=== PATIENT | female | born 1950 | race Caucasian/White ===

== ENCOUNTER → 2018-02-03 | Outpatient (CLI) | payer MEDICARE, OTHER ==
[~2018-02-03] MED LIST: ASPI81CH PO; CODACE30 PO; METO2.5 PO; Multi-Day Vita1 EACH PO; Vitamin D2000 UNIT PO; XARELTO20 MG PO
[2018-02-03 14:49] LABS: Source, Urine Clean Catch
[2018-02-03 15:27] LABS: Red Blood Cells, Urine TNTC /hpf (0-2); Squamous Epithelial Cells Not Seen /hpf (Few); White Blood Cells, Urine Not Seen /hpf (0-5)
[2018-02-03 15:29] LABS: Amorphous Mod (0-Heavy)
== END | disposition home or self-care (01) ==
LOC: LAB SHORT 14:46 → LAB EV 14:46
PROVIDERS: Physician Assistant Medical
DX: R31.9 Hematuria, unspecified (principal)
CPT/HCPCS: 81015

== ENCOUNTER 2019-09-17 00:20 | Emergency (ER) | payer MEDICARE, OTHER ==
[~2019-09-17] VITALS: Ht 162.6 cm; Wt 63.5 kg
[2019-09-17] MEDS ORDERED: AMIODARONE HCL100 MG PO (01:02)
[2019-09-17 01:03] LABS: BASOPHILS ABSOLUTE AUTO 0.04 K/mm3 (0.00-0.23); BASOPHILS PERCENT AUTO 1 % (0-2); EOSINOPHILS ABSOLUTE AUTO 0.11 K/mm3 (0.00-0.68); EOSINOPHILS PERCENT AUTO 2 % (0-6); Hematocrit 37.2 % (33.0-51.0); Hemoglobin 12.5 g/dL (11.5-16.0); IMMATURE GRAN ABSOLUTE AUTO 0.01 K/mm3 (0.00-0.10); IMMATURE GRAN PERCENT AUTO 0 % (0-1); LYMPHOCYTES ABSOLUTE AUTO 1.42 K/mm3 (0.84-5.20); LYMPHOCYTES PERCENT AUTO 31 % (21-46); MONOCYTES PERCENT AUTO 7 % (4-13); Mean Corpuscular HGB 33.2 pg (26.0-34.0); Mean Corpuscular HGB Conc 33.6 g/dL (31.5-36.5); Mean Corpuscular Volume 99 fL (80-100); NEUTROPHILS ABSOLUTE AUTO 2.73 K/mm3 (1.96-9.15); NEUTROPHILS PERCENT AUTO 59 % (41-73); Platelet Count 169 K/mm3 (150-400); RDW Coefficient Variation 12.1 % (11.7-14.2); RDW Standard Deviation 44.5 fL (35.1-46.3); Red Blood Cell Count 3.76 M/mm3 (3.80-5.20); White Blood Cell Count 4.61 K/mm3 (4.00-11.30)
[2019-09-17 01:21] LABS: Alanine Aminotransfer (ALT/SGP 31 U/L (12-78); Albumin/Globulin Ratio 1.3 (0.8-1.8); Alk Phos 127 U/L (50-136); Anion Gap 8 mmol/L (6-16); Aspartate Aminotrans (AST/SGOT 25 U/L (12-37); Bilirubin, Total 0.5 mg/dL (0.1-1.0); Blood Urea Nitrogen 19 mg/dL (8-24); Bun/Creatinine Ratio 17.9 (12.0-20.0); CO2, Blood 26 mmol/L (21-32); Calcium, Blood 8.9 mg/dL (8.5-10.1); Chloride, Blood 109 mmol/L (98-108); Creatinine, Blood 1.06 mg/dL (0.40-1.00); Glomerular Filtration Rate 55 (60-); Glucose, Blood 100 mg/dL (70-99); Potassium, Blood 3.6 mmol/L (3.5-5.5); Sodium, Blood 143 mmol/L (136-145); Troponin I <0.015 ng/mL (0.000-0.040)
== END 2019-09-17 02:02 | disposition home or self-care (01) ==
LOC: ER 00:20
PROVIDERS: Emergency Medicine
DX: I10 Essential (primary) hypertension (principal); M79.602 Pain in left arm; R20.2 Paresthesia of skin; Z88.1 Allergy status to other antibiotic agents; Z88.8 Allergy status to other drugs, medicaments and biological substances; Z91.048 Other nonmedicinal substance allergy status; Z79.899 Other long term (current) drug therapy; Z79.01 Long term (current) use of anticoagulants
CPT/HCPCS: 36415; 71046; 80053; 84484; 85025; 93005; 93010; 99285-25

== ENCOUNTER → 2021-11-13 | Outpatient (CLI) | payer MEDICARE, OTHER ==
[~2021-11-13] MED LIST changes: +ALEN70; +AMIODARONE HCL100 MG PO; +CALCIUM 600 +1 EA11; +CENTRUM SILVER1 EAC2; +ERGO400; +LASIX40 MG; +POTA10T
== END | disposition home or self-care (01) ==
LOC: LAB SHORT 11:15 → PLD 11:15
DX: L30.8 Other specified dermatitis (principal)
CPT/HCPCS: 88305; 88312

== ENCOUNTER → 2023-12-10 | Outpatient (CLI) | payer OTHER | LOC: LAB SHORT 11:54 → PLD 11:54 | DX: D48.5 Neoplasm of uncertain behavior of skin (principal) | CPT/HCPCS: 88305 ==

== ENCOUNTER 2024-09-13 08:15 | Emergency (ER) | payer OTHER ==
[~2024-09-13] VITALS: Ht 162.6 cm; Wt 67.1 kg
[~2024-09-13 08:15] MED LIST changes: -ERGO400; +ERGO400 PO
[2024-09-13 09:47] LABS: BASOPHILS ABSOLUTE AUTO 0.06 K/mm3 (0.00-0.23); BASOPHILS PERCENT AUTO 1 % (0-2); EOSINOPHILS ABSOLUTE AUTO 0.09 K/mm3 (0.00-0.68); EOSINOPHILS PERCENT AUTO 2 % (0-6); Hematocrit 32.9 % (33.0-51.0); Hemoglobin 10.8 g/dL (11.5-16.0); IMMATURE GRAN ABSOLUTE AUTO 0.01 K/mm3 (0.00-0.10); IMMATURE GRAN PERCENT AUTO 0 % (0-1); LYMPHOCYTES PERCENT AUTO 23 % (21-46); MONOCYTES ABSOLUTE AUTO 0.29 K/mm3 (0.16-1.47); MONOCYTES PERCENT AUTO 7 % (4-13); Mean Corpuscular HGB 33.2 pg (26.0-34.0); Mean Corpuscular HGB Conc 32.8 g/dL (31.5-36.5); Mean Corpuscular Volume 101 fL (80-100); Mean Platelet Volume 9.6 fL (9.1-12.4); NEUTROPHILS ABSOLUTE AUTO 2.98 K/mm3 (1.96-9.15); NEUTROPHILS PERCENT AUTO 67 % (41-73); Platelet Count 200 K/mm3 (150-400); Red Blood Cell Count 3.25 M/mm3 (3.80-5.20); White Blood Cell Count 4.43 K/mm3 (4.00-11.30)
[2024-09-13 10:23] LABS: Albumin, Blood 3.8 g/dL (3.4-5.0); Albumin/Globulin Ratio 1.5 (0.8-1.8); Bilirubin, Total 0.8 mg/dL (0.1-1.0); Bun/Creatinine Ratio 14.9 (12.0-20.0); Calcium, Blood 8.9 mg/dL (8.5-10.1); Creatinine, Blood 1.68 mg/dL (0.40-1.00); Globulin, Blood 2.5 g/dL (2.2-4.0); Potassium, Blood 3.7 mmol/L (3.5-5.5); Total Protein, Blood 6.3 g/dL (6.4-8.2)
[2024-09-13] MEDS ORDERED: LOSARTAN POTASS25 M2 PO (11:21)
[2024-09-13] MEDS ORDERED: EUTHYROX25 MC1 PO (11:22)
[2024-09-13] MEDS ORDERED: METOPROLOL SUCC25 MG PO (11:22)
[2024-09-13] MEDS ORDERED: Potassium Chlo20 ME1 PO (11:24)
[2024-09-13] MEDS ORDERED: FUROSEMIDE40 MG PO (11:24)
[2024-09-13] MEDS ORDERED: XARELTO15 M1 PO (11:24)
[2024-09-13] MEDS ORDERED: IBUP600 PO (13:57)
[2024-09-13 14:00] VITALS: BP 126/66
== END 2024-09-13 14:15 | disposition home or self-care (01) ==
LOC: ER 08:15
PROVIDERS: Physician Assistant
DX: M54.10 Radiculopathy, site unspecified (principal); J90 Pleural effusion, not elsewhere classified; I48.91 Unspecified atrial fibrillation; I10 Essential (primary) hypertension; Z95.0 Presence of cardiac pacemaker; Z88.0 Allergy status to penicillin; Z88.1 Allergy status to other antibiotic agents; Z91.048 Other nonmedicinal substance allergy status; Z79.01 Long term (current) use of anticoagulants; Z79.899 Other long term (current) drug therapy
CPT/HCPCS: 71046; 71260; 80053; 84484; 85025; 93005; 93010; 99284-25; Q9967

== ENCOUNTER 2024-09-16 09:45 | Emergency (ER) | payer OTHER ==
[~2024-09-16] VITALS: Ht 162.6 cm; Wt 67.1 kg
[~2024-09-16 09:45] MED LIST changes: +EUTHYROX25 MC1 PO; +FUROSEMIDE40 MG PO; +IBUP600 PO; +LOSARTAN POTASS25 M2 PO; +METOPROLOL SUCC25 MG PO; +Potassium Chlo20 ME1 PO; +XARELTO15 M1 PO
[2024-09-16 10:15] LABS: BASOPHILS ABSOLUTE AUTO 0.06 K/mm3 (0.00-0.23); BASOPHILS PERCENT AUTO 1 % (0-2); EOSINOPHILS ABSOLUTE AUTO 0.17 K/mm3 (0.00-0.68); EOSINOPHILS PERCENT AUTO 3 % (0-6); Hematocrit 31.7 % (33.0-51.0); Hemoglobin 10.5 g/dL (11.5-16.0); IMMATURE GRAN ABSOLUTE AUTO 0.02 K/mm3 (0.00-0.10); IMMATURE GRAN PERCENT AUTO 0 % (0-1); LYMPHOCYTES ABSOLUTE AUTO 1.01 K/mm3 (0.84-5.20); LYMPHOCYTES PERCENT AUTO 18 % (21-46); MONOCYTES ABSOLUTE AUTO 0.36 K/mm3 (0.16-1.47); MONOCYTES PERCENT AUTO 6 % (4-13); Mean Corpuscular HGB 33.8 pg (26.0-34.0); Mean Corpuscular HGB Conc 33.1 g/dL (31.5-36.5); Mean Corpuscular Volume 102 fL (80-100); Mean Platelet Volume 9.7 fL (9.1-12.4); NEUTROPHILS ABSOLUTE AUTO 4.12 K/mm3 (1.96-9.15); NEUTROPHILS PERCENT AUTO 72 % (41-73); Platelet Count 192 K/mm3 (150-400); RDW Coefficient Variation 13.2 % (11.7-14.2); RDW Standard Deviation 49.3 fL (35.1-46.3); Red Blood Cell Count 3.11 M/mm3 (3.80-5.20); White Blood Cell Count 5.74 K/mm3 (4.00-11.30)
[2024-09-16 10:34] LABS: Albumin, Blood 3.7 g/dL (3.4-5.0); Albumin/Globulin Ratio 1.4 (0.8-1.8); Bilirubin, Total 0.9 mg/dL (0.1-1.0); Bun/Creatinine Ratio 15.8 (12.0-20.0); Calcium, Blood 9.2 mg/dL (8.5-10.1); Creatinine, Blood 1.52 mg/dL (0.40-1.00); Globulin, Blood 2.6 g/dL (2.2-4.0); Potassium, Blood 3.6 mmol/L (3.5-5.5); Total Protein, Blood 6.3 g/dL (6.4-8.2)
[2024-09-16 12:22] LABS: International Normalized Ratio 1.07; Prothrombin Time Results 11.4 Sec (9.7-11.5)
[2024-09-16 13:44] VITALS: BP 139/85
== END 2024-09-16 13:45 | disposition home or self-care (01) ==
LOC: ER 09:45
PROVIDERS: Physician Assistant; Student in an Organized Health Care Education/Training Program
DX: J90 Pleural effusion, not elsewhere classified (principal); I48.91 Unspecified atrial fibrillation; I10 Essential (primary) hypertension; Z79.899 Other long term (current) drug therapy; Z88.0 Allergy status to penicillin; Z88.1 Allergy status to other antibiotic agents; Z91.048 Other nonmedicinal substance allergy status
CPT/HCPCS: 36415; 71046; 80053; 83880; 85025; 85610; 85730; 93005; 93010; 99284-25

== ENCOUNTER 2024-09-19 10:35 | Day surgery (SDC) | payer OTHER | END 2024-09-20 00:20 | disposition home or self-care (01) | LOC: US 10:35 | DX: J90 Pleural effusion, not elsewhere classified (principal); I11.9 Hypertensive heart disease without heart failure; I48.91 Unspecified atrial fibrillation; R06.00 Dyspnea, unspecified; Z95.0 Presence of cardiac pacemaker; Z79.01 Long term (current) use of anticoagulants; Z79.83 Long term (current) use of bisphosphonates; Z79.899 Other long term (current) drug therapy; Z91.048 Other nonmedicinal substance allergy status; Z88.0 Allergy status to penicillin; Z88.8 Allergy status to other drugs, medicaments and biological substances | CPT/HCPCS: 32555; 71045; 82945; 84157; 87070; 87205; 88108; 88305 ==

== ENCOUNTER → 2024-09-19 | Outpatient (CLI) | payer OTHER ==
[2024-09-19 12:55] LABS: Glucose, Body Fluid 104 mg/dL; Protein, Body Fluid 2.6 g/dL
== END | disposition home or self-care (01) ==
LOC: LAB 11:36 → LAB SHORT 11:36
PROVIDERS: Student in an Organized Health Care Education/Training Program
DX: J90 Pleural effusion, not elsewhere classified (principal); I10 Essential (primary) hypertension; R06.00 Dyspnea, unspecified
CPT/HCPCS: 82945; 84157; 88108; 88305

== ENCOUNTER 2024-10-18 08:16 | Day surgery (SDC) | payer OTHER ==
[~2024-10-18] VITALS: Ht 162.6 cm; Wt 63.0 kg
[2024-10-18] VITALS (9 sets, daily range): BP systolic 88–164; BP diastolic 61–73
[~2024-10-18 08:16] MED LIST changes: +Heparin Sodium 1000 Units/ML 10ML MDV ONE; +NS 1,000 ML IV ONE; +NS 250 ML IV ONE; +Nitroglycerin 2 MG/20 ML BTL ONE; +PACERONE100 M1 PO; +Verapamil HCL 2.5 MG/ML 2ML Injection ONE
[2024-10-18] MEDS ORDERED: Aspirin 325 MG Tab ONE (08:24)
[2024-10-18] MEDS ORDERED: Midazolam HCl 1MG / ML 2ML Vial ONE (09:26)
[2024-10-18] MEDS ORDERED: NS 1,000 ML IV ONE (09:26)
[2024-10-18] MEDS ORDERED: FentaNYL Citrate 50 MCG/ML 2 ML Injection ONE (09:26)
--- NOTE | 2024-10-18 10:58 | NUR ---
pt to recovery from lab. radial site soft and non-tender per pt. brachial site soft and non-tender per pt. no bleeding noted at either site. pt given water per request. pt refused food.
[2024-10-18] MEDS ORDERED: FERGON225 MG PO (11:02)
[2024-10-18] MEDS ORDERED: JARDIANCE10 MG PO (11:03)
[2024-10-18] MEDS ORDERED: NITR.4SL SL (11:04)
[2024-10-18] MEDS ORDERED: METO25ER PO (11:04)
--- NOTE | 2024-10-18 11:08 | NUR ---
dr alarcon at bedside to dsicuss procedure and future plan of care.
--- NOTE | 2024-10-18 11:28 | NUR ---
2CC REMOVED FROM TR BAND. SITE SOFT AND NON-TENDER PER PT. NO BLEEDING NOTED. BRACHIAL SITE SOFT AND NON-TENDER PER PT. NO BLEEDING NOTED.
--- NOTE | 2024-10-18 11:52 | NUR ---
2cc removed from tr band. site soft and non-tender per pt. no bleeding noted. brachial site soft and non-tender per pt.
--- NOTE | 2024-10-18 11:59 | NUR ---
tr band full deflated. no bleeding noted. site soft and non-tender per pt.
--- NOTE | 2024-10-18 12:31 | NUR ---
radial site started to bleed after removing tr band. tr band put back into place w/ 6cc of air. site soft and nontender per pt. no more bleeding noted.
--- NOTE | 2024-10-18 13:10 | NUR ---
TR band fully deflated. small hamatoma noted to R wrist. pressure held. site is soft, no bleeding. deflated TR band left in place at this time.
--- NOTE | 2024-10-18 14:04 | NUR ---
pt given dc instructions and verbalized understanding. iv out. radial and brachial site soft and non-tender per pt. no bleeding noted. cloth dot, arm board, and sling applied. pt chnaged. pt taken to car via [place] to drive pt home.
== END 2024-10-18 14:18 | disposition home or self-care (01) ==
LOC: MHTC 08:16
DX: I13.0 Hypertensive heart and chronic kidney disease with heart failure and stage 1 through stage 4 chronic kidney disease, or unspecified chronic kidney disease (principal); N18.30 Chronic kidney disease, stage 3 unspecified; I50.20 Unspecified systolic (congestive) heart failure; I27.20 Pulmonary hypertension, unspecified; I36.1 Nonrheumatic tricuspid (valve) insufficiency; E78.00 Pure hypercholesterolemia, unspecified; E03.9 Hypothyroidism, unspecified; D50.9 Iron deficiency anemia, unspecified; I48.21 Permanent atrial fibrillation; I49.5 Sick sinus syndrome; Z95.0 Presence of cardiac pacemaker; Z79.890 Hormone replacement therapy; Z79.01 Long term (current) use of anticoagulants; Z79.899 Other long term (current) drug therapy; Z88.0 Allergy status to penicillin
CPT/HCPCS: 76937; 93460; 99152; 99153; A9270; C1769; C1887; C1894; J1644; J2250; J3010; J7030; J7050; Q9967

== ENCOUNTER → 2025-06-23 | Outpatient (CLI) | payer OTHER ==
[~2025-06-23] MED LIST changes: +FERGON225 MG PO; -Heparin Sodium 1000 Units/ML 10ML MDV ONE; +JARDIANCE10 MG PO; +METO25ER PO; +NITR.4SL SL; -NS 1,000 ML IV ONE; -NS 250 ML IV ONE; -Nitroglycerin 2 MG/20 ML BTL ONE; -Verapamil HCL 2.5 MG/ML 2ML Injection ONE
[2025-06-23 11:32] LABS: Bilirubin, Urine Neg (Neg); Color, Urine Yellow (P-Yellow); Glucose Qualitative, Urine 3+ (Neg); Ketones, Urine Neg (Neg); Leukocyte Esterase, Urine Neg (Neg); Protein, Urine Neg (Neg); Specific Gravity, Urine 1.010 (1.003-1.022); Urobilinogen, Urine NORM (Normal)
[2025-06-23 12:25] LABS: Creatinine, Urine Random 11.2 mg/dL (27.00-270.00); Protein, Urine Random 8.3 mg/dL (0.0-11.9); Protein/Creat Ratio, Ur Random 0.7
== END ==
LOC: LAB 10:10 → LAB SHORT 10:10
PROVIDERS: Hospitalist
DX: N18.31 Chronic kidney disease, stage 3a (principal)
CPT/HCPCS: 81003; 82570; 84156